=== PATIENT | male | born 1990 | race African-American/Black ===

== ENCOUNTER 2017-08-01 23:06 | Emergency (ER) | payer SELFPAY ==
[~2017-08-01] VITALS: Ht 182.9 cm; Wt 75.0 kg
[2017-08-01 23:15] VITALS: BP 121/70; TEMP 98
[2017-08-02] MEDS ORDERED: NORCO 325 MG-51 TAB PO (00:20)
[2017-08-02 00:34] VITALS: PULSE 75
== END 2017-08-02 00:35 | disposition home or self-care (01) ==
LOC: COL.ER 23:06
DX: S99.921A Unspecified injury of right foot, initial encounter (principal); F17.210 Nicotine dependence, cigarettes, uncomplicated; W18.39XA Other fall on same level, initial encounter; X50.0XXA Overexertion from strenuous movement or load, initial encounter